=== PATIENT | female | born 1990 | race African-American/Black ===

== ENCOUNTER 2019-10-18 01:24 | Emergency (ER) | payer OTHER, SELFPAY ==
--- NOTE | ~2019-10-18 | XR_ITS ---
EXAMINATION: XR chest 2V DATE: 10/18/2019 02:02 INDICATION: Shortness of breath TECHNIQUE: PA and lateral views of the chest were obtained. COMPARISON: None FINDINGS: The lungs are clear with no focal airspace opacities, pulmonary edema, pleural effusion or pneumothor ax. The cardiomediastinal silhouette is normal. Visualized bones and soft tissues are unremarkable. IMPRESSION: 1. Normal chest radiograph. Reviewed, dictated and finalized at location A. IMPRESSION: 1. Normal chest radiograph.
[2019-10-18 01:33] VITALS: BP 141/92; PULSE 129; RESP 18; TEMP 37.4; O2SAT 100
--- NOTE | 2019-10-18 01:43 | ECG_ITS ---
Measurements Intervals [place] Rate: 136 P: 69 OR: 127 QRS: 73 QRSD: 96 T: 43 QT: 372 QTc: 560 Interpretive Statements SINUS TACHYCARDIA BASELINE ARTIFACT- V6 ABNORMAL ECG Electronically Signed On 10-18-2019 7:30:26 CDT by Damian Patel D.O.
--- NOTE | 2019-10-18 01:44 | ED.ANXIETY ---
HPI - Anxiety General Chief Complaint: Anxiety Stated Complaint: SOB, SHAKEY, FAST HR Time Seen by Provider: 10/18/19 01:29 Source: RN notes reviewed History of Present Illness HPI narrative: Patient presents emergency department from home for heart racing. Patient states that this evening she laid on go to bed when she felt her heart was racing began to have shaking in her bilateral arms. Patient states that the symptoms continued she presented emergency department for further evaluation. States that she has associated shortness of breath. States that the current symptoms feel like a panic attack but worse. She denies any fevers or chills chest pain abdominal pain nausea vomiting or any other symptoms. Denies taking previous medication for the symptoms at home Related Data Allergies Allergy/AdvReac Type Severity Reaction Status Date / Time amoxicillin Allergy Unknown Verified 10/18/19 01:36 Penicillins Allergy Unknown Verified 10/18/19 01:36 Review of Systems Review of Systems: Narrative: Gen.: Denies fevers or chills ENT: Denies congestion Respiratory: Denies shortness of breath or cough CV: Reports rapid heart rate GI: Denies abdominal pain nausea, emesis or diarrhea Musculoskeletal: Denies back pain or muscle pain Neuro: Denies numbness, tingling, weakness or focal weakness reports shaking of the arms Skin: Denies rash Except as documented, all other systems reviewed and negative [facility] Past Medical History Medical History (Updated 10/18/19 @ 03:55 by Poncho Colbert DO) Anxiety Social History Social History (Updated 10/18/19 @ 01:45 by Poncho Colbert DO) Smoking status: Current every day smoker Exam Narrative: Exam Narrative: APPEARANCE: Anxious in appearance, nontoxic EYES: EOMI HEENT: Normocephalic, atraumatic, OMM RESPIRATORY: No respiratory distress Clear to auscultation bilaterally with no rhonchi wheezing or rales. CARDIOVASCULAR: Tachycardic and regular without murmurs rubs or gallops. ABDOMINAL: Soft, nontender, nondistended, no rebound or guarding MUSCULOSKELETAl: Moves all extremities. No clubbing, cyanosis or edema. NEURO: Awake and alert. Following commands, speech normal, no focal deficits SKIN:: Warm, dry. No rashes lesions or abrasions PSYCHIATRIC: Anxious in appearance Course Course Emergency Course: Patient states all symptoms have resolved following Ativan Discussed with patient results of workup and diagnosis. Discussed need for follow-up with primary care, proper use of medication, and reasons to return to the emergency department. Patient understands and agrees to current treatment plan Vital Signs Vital signs: Vital Signs Temperature 99.3 F 10/18/19 01:33 Pulse Rate 129 H 10/18/19 01:33 Respiratory Rate 18 10/18/19 01:33 Blood Pressure 141/92 H 10/18/19 01:33 Pulse Oximetry 100 10/18/19 01:33 Temperature 99.3 F 10/18/19 01:33 Pulse Rate 98 10/18/19 02:56 Respiratory Rate 25 H 10/18/19 02:56 Blood Pressure 124/76 10/18/19 02:56 Pulse Oximetry 98 10/18/19 02:56 MDM - Anxiety Lab Data Result diagrams: 10/18/19 02:15 10/18/19 02:15 Labs: Lab Results 10/18/19 10/18/19 10/18/19 Range/Units 02:15 02:15 02:15 WBC 7.8 (4.5-10.0) K/mm3 RBC 4.05 L (4.2-5.4) M/mm3 Hgb 12.7 (12.0-15.0) g/dL Hct 37.4 (37.0-47.0) % MCV 92.3 (80-100) fl MCH 31.4 (26-34) pg MCHC 34.0 (32-36) g/dl RDW 13.0 (11.5-14.5) % Plt Count 212 (150-375) k/mm3 MPV 11.2 H (7.4-10.4) fl Immature Gran % (Auto) 0.3 (0-0.5) % Neut % (Auto) 54.1 (45.5-73.1) % Lymph % (Auto) 33.6 (18.3-44.2) % [place] % (Auto) 9.8 H (2.6-8.5) % Eos % (Auto) 1.8 (0-4.4) % Baso % (Auto) 0.4 (0.2-1.2) % Lymph # (Auto) 2.63 (0.9-3.2) K/mm3 [place] # (Auto) 0.8 H (0.1-0.6) K/mm3 Eos # (Auto) 0.1 (0-0.3) K/mm3 Baso # (Auto) 0.0 (0.0-0.1) K/mm3 Abs Immat Gran (auto) 0.02
[2019-10-18] MEDS: SODIUM CHLORIDE 0.9% IV 1,000 ML 999 ML IV CONT (02:12)
[2019-10-18 02:17] VITALS: BP 124/82; PULSE 104; RESP 16; O2SAT 99
[2019-10-18 02:23] LABS: Basophils Percent Auto 0.4 % (0.2-1.2); Eosinophils Absolute Auto 0.1 K/mm3 (0-0.3); Eosinophils Percent Auto 1.8 % (0-4.4); Hematocrit 37.4 % (37.0-47.0); Hemoglobin 12.7 g/dL (12.0-15.0); Immature Granulocyte Absolute 0.02 K/mm3 (0.00-0.031); Immature Granulocyte Percent A 0.3 % (0-0.5); Lymphocytes Absolute Auto 2.63 K/mm3 (0.9-3.2); Lymphocytes Percent Auto 33.6 % (18.3-44.2); Mean Corpuscular Hemoglobin 31.4 pg (26-34); Mean Corpuscular Volume 92.3 fl (80-100); Mean Platelet Volume 11.2 fl (7.4-10.4); Monocytes Absolute Auto 0.8 K/mm3 (0.1-0.6); Monocytes Percent Auto 9.8 % (2.6-8.5); Neutrophils Absolute Auto 4.2 K/mm3 (1.3-6.7); Neutrophils Percent Auto 54.1 % (45.5-73.1); Platelet Count Result 212 k/mm3 (150-375); Red Blood Count 4.05 M/mm3 (4.2-5.4); White Blood Count 7.8 K/mm3 (4.5-10.0)
[2019-10-18 02:36] LABS: Blood Urea Nitrogen 14 mg/dL (7-17); Calcium 9.1 mg/dL (8.4-10.2); Carbon Dioxide 23 mmol/L (22-30); Chloride 104 mmol/L (98-107); Estimated Glomerular Filt Rate > 60; Glucose 140 mg/dL (65-105); INR 1.1; Potassium 3.5 mmol/L (3.4-5.0); Prothrombin Time 13.4 Seconds (11.1-14.7); Sodium 138 mmol/L (137-145)
[2019-10-18 02:37] LABS: Partial Thromboplastin Time 30.3 SECONDS (22.3-36.8)
[2019-10-18 02:43] LABS: D Dimer < 0.22 ug/mL (<0.48)
[2019-10-18 02:48] LABS: Troponin I < 0.012 ng/mL (0.000-0.034)
[2019-10-18 02:56] VITALS: BP 124/76; PULSE 98; RESP 25; O2SAT 98
[2019-10-18 03:50] VITALS: BP 111/64; PULSE 100; RESP 28; O2SAT 97
== END 2019-10-18 03:50 | disposition home or self-care (01) ==
PROVIDERS: Emergency Provider Emergency Medicine
DX: F41.9 Anxiety disorder, unspecified (principal); R00.2 Palpitations; R00.0 Tachycardia, unspecified
CPT/HCPCS: 36415; 71046; 80048; 84484; 85025; 85380; 85610; 85730; 93005; 96361; 96374; 99284; J2060; J7030